=== PATIENT | female | born 1960 | race Caucasian/White ===

== ENCOUNTER → 2021-10-21 | Outpatient (CLI) | payer MEDICAID, SELFPAY ==
--- NOTE | 2021-10-21 12:50 | RAD_ITS ---
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 Stable slightly exaggerated lordotic curvature with stable grade 1 retrolisthesis of L1 on L2, L2 on L3, and L3 on L4. Vertebral body heights are maintained without acute fracture or subluxation. Facet arthropathy most prominent at the L3-S1 levels. No acute findings in the visualized abdomen. RAD/L/S Spine Min 4 Views IMPRESSION: No acute findings. Chronic findings as above. Electronically Signed: Glenn Chowdhury, at 16:14 EDT ,
== END | disposition home or self-care (01) ==
LOC: RAD 12:38
PROVIDERS: PCP Internal Medicine; Referring Provider Podiatrist; Visit Provider Podiatrist
DX: M54.16 Radiculopathy, lumbar region (principal)
CPT/HCPCS: 72110

== ENCOUNTER → 2021-12-21 | Outpatient (CLI) | payer MEDICAID, SELFPAY ==
--- NOTE | 2021-12-21 16:00 | NEURO ---
NCS and/or EMG Patient Report Ordering Doctor: Julio Cardenas DATE OF SERVICE: 12/21/21 Indication: Bilateral, proximal, lower extremity weakness (right slightly greater than left) without associated pain or sensory disturbance. Findings: Nerve conduction studies were performed in the right and left lower extremities. The right peroneal motor study recording the extensor digitorum brevis showed a normal amplitude, normal distal latency and normal conduction velocity. Focal slowing was present across the fibular neck, but no conduction block was present. The right tibial motor study recording the abductor hallucis brevis showed a normal amplitude, normal distal latency and normal conduction velocity. The right sural sensory response showed a normal amplitude and conduction velocity. The right superficial peroneal sensory response showed a normal amplitude and conduction velocity. The right medial plantar response showed a normal amplitude and conduction velocity. The left peroneal motor study recording the extensor digitorum brevis showed a normal amplitude, normal distal latency and normal conduction velocity. Focal slowing was present across the fibular neck, but no conduction block was present. The left tibial motor study recording the abductor hallucis brevis showed a normal amplitude, normal distal latency and normal conduction velocity. The left sural sensory response showed a normal amplitude and conduction velocity. The left superficial peroneal sensory response showed a normal amplitude and conduction velocity. The left medial plantar response showed a normal amplitude and conduction velocity. Needle EMG of the right lower extremity and lumbosacral paraspinal muscles was performed. No denervation was present in any muscle. Analysis of the medial gastrocnemius was limited by poor activation. All other motor unit morphology, activation, and recruitment patterns were normal. Needle EMG of the left lower extremity was omitted given the paucity of findings in the more symptomatic limb. Impression: This is a mildly abnormal study. 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 These results should be interpreted with caution as lesions in this location would not be expected to produce the patient's current symptomatology. In addition, there is no definite electrophysiologic evidence of myopathy or radiculopathy in the right lower extremity. Talha Branch D.O. Multi Select Codes Neurology Neurology Interp Codes: 01703-66 Musc test done w/n test comp (interp) and 68594-70 Nrv cndj test 9-10 studies (interp)
== END | disposition home or self-care (01) ==
LOC: PSN 14:17
PROVIDERS: PCP Internal Medicine; Referring Provider Podiatrist; Visit Provider Podiatrist
DX: M54.16 Radiculopathy, lumbar region (principal)
CPT/HCPCS: 95886; 95911

== ENCOUNTER 2022-11-04 08:15 | Day surgery (SDC) | payer MEDICAID, SELFPAY ==
[2022-11-04] VITALS (7 sets, daily range): BP systolic 113–155; BP diastolic 65–98; PULSE 74–102; RESP 16–18; TEMP 36.1–36.7; O2SAT 94–100; BMI 27.3
[2022-11-04] MEDS: Lactated Ringers 1,000 ML 15 ML IV ×2 (09:02→15:05)
--- NOTE | 2022-11-04 13:07 | RAD_ITS ---
EXAM: XR LEFT WRIST, 2 VIEWS CLINICAL INDICATION: FX TECHNIQUE: Frontal and lateral views of the left wrist. RADIATION DOSE: Fluoroscopic time: 44.6 seconds, 0.65 mGY. COMPARISON: No relevant prior studies available. FINDINGS: 6 intraoperative images provided. Well-positioned long stabilization plate and screws involving the mid-distal radius. RAD/Wrist 2 Views IMPRESSION: Intraoperative exam. Electronically Signed: Rosa Gray MD at 8:01 EDT ,
[2022-11-04] MEDS: Cefazolin 2 GM in 0.9% Normal Saline 100 ML IV (13:17)
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
== END 2022-11-04 16:25 | disposition home or self-care (01) ==
LOC: SDC 08:16 → AC 08:17
PROVIDERS: PCP Internal Medicine; Referring Provider Student in an Organized Health Care Education/Training Program; Visit Provider Student in an Organized Health Care Education/Training Program
PROC: (CPT 25605; principal; 2022-11-04 10:30)
DX: S52.352A Displaced comminuted fracture of shaft of radius, left arm, initial encounter for closed fracture (principal); S52.615A Nondisplaced fracture of left ulna styloid process, initial encounter for closed fracture; V17.0XXA Pedal cycle driver injured in collision with fixed or stationary object in nontraffic accident, initial encounter; Y93.55 Activity, bike riding; E66.3 Overweight; Z68.27 Body mass index [BMI] 27.0-27.9, adult
CPT/HCPCS: 25605; 64417; 73100; 76000; C1713; J7120; J2405